=== PATIENT | female | born 1950 | race Caucasian/White ===

== ENCOUNTER 2016-08-30 11:05 | Emergency (ER) | payer BC ==
[~2016-08-30] VITALS: Ht 160 cm; Wt 78.5 kg
[~2016-08-30 11:05] MED LIST: ALL180 PO; CARB200T PO; CHOL100010 PO; DTR5 PO; ESTR1.252 PO; NABU500T3 PO; OMEP40CA PO; PHEN1TAB85 PO; POTA20TA16 PO
[2016-08-30 11:09] VITALS: TEMP 36.5; Ht 160 cm; Wt 78.5 kg
[2016-08-30] MEDS ORDERED: AMOX500C3 PO (11:49)
[2016-08-30 12:01] VITALS: BP 164/96; PULSE 73; O2SAT 95
--- NOTE | 2016-08-30 16:50 | EMERGENCY ROOM VISIT NOTE ---
ED Visit Note First contact with patient: 11:35 CHIEF COMPLAINT: Sinus pressure and nasal discharge HPI: This 65-year-old white female patient complains of gradual onset of sinus pressure and nasal discharge that has lasted a month. She notes bilateral ear pain for the last 10-14 days as well. She is unsure if she has a fever. Occasional chills. No sweats. She has not seen her PCP for these symptoms. No nausea or vomiting. No neck pain. Denies any difficulty breathing or cough. She did have some chest tightness yesterday but this has resolved. Denies any rash. REVIEW OF SYSTEMS: Throat: No sore throat, dysphagia, or hoarseness. Neck: No stiffness, or swelling. Cardiac: No chest pain, diaphoresis, dyspnea on exertion, orthopnea, pedal edema, or palpitations. Respiratory: No wheezing, hemoptysis, shortness of breath, or stridor. PMH: Significant for seasonal allergies, osteoarthritis, urinary incontinence, GERD, and seizure history. Previous surgeries: ERCP, hysterectomy, cholecystectomy Current medications: Archana, Relafen, vitamins, Premarin, did trip and, Prilosec, phenobarbital, Tegretol, potassium Allergies: Codeine, phenytoin. She states penicillin stopped working for her, but she denies any allergy. No rashes or shortness of breath. SOCIAL HISTORY: Patient lives at home. No tobacco use, no EtOH use. PHYSICAL EXAM: Vital Signs: Afebrile. Reviewed Nurse's notes. MENTAL STATUS: Alert, oriented and cooperative. Sitting on a bed. Skin: Warm and dry with good turgor. No rashes or lesions. No ecchymosis or erythema. The patient is not diaphoretic. No abrasions. HEENT: Normocephalic atraumatic. Eyes PERRLA , EOMI. No conjunctiva or scleral injection. Ears TMs intact bilaterally with good light reflexes. No erythema or bulging. No hemotympanum. Canals are narrow. Nares patent bilaterally with left-sided turbinate enlargement. Thick white drainage present in the left nares. No epistaxis. She has discomfort with palpation over the maxillary sinuses bilaterally. No pain with palpation over the frontal sinuses. Oropharynx with erythema but no exudate. Uvula midline, oral mucosa moist. No lesions present. Lymphatics are palpated with left-sided anterior and posterior chain enlargement and tenderness. No enlargement on the right. LUNGS: Clear to auscultation and breath sounds equal , no wheezes, rales, or rhonchi. The pharynx is clear and not inflamed. HEART : normal regular sounds, no murmurs or rub. DIAGNOSIS: Acute maxillary sinusitis DISCHARGE INSTRUCTIONS: Patient was educated regarding today's findings. Conservative care measures were discussed. She was prescribed amoxicillin 500 mg 3 times a day 10 days. Her allergy versus sensitivity was confirmed with her. Start ibuprofen 600 mg every 6 hours with food for body aches or discomfort. Continue her Mucinex twice a day. Maintain hydration. Follow-up with her PCP next week if symptoms are not improving. She was reassured that I do not suspect otitis media, strep pharyngitis, or tonsillitis at this point. Current/Historical Medications Scheduled Amoxicillin (Amoxil), 500 MG PO TID Carbamazepine (Tegretol), 200 MG PO BID Cholecalciferol (Vitamin D), 1,000 INTER.UNIT PO DAILY Estrogens, Conjugated (Premarin), 1.25 MG PO DAILY Fexofenadine Hcl (Archana *), 180 MG PO DAILY Nabumetone (Relafen), 500 MG PO BID Omeprazole (Prilosec), 40 MG PO DAILY Oxybutynin Chloride (Ditropan *), 5 MG PO DAILY Phenobarbital (Phenobarbital), 30 MG PO BID Potassium Ext Rel (Klor-Con), 20 MEQ PO DAILY Allergies Coded Allergies: Codeine (Unverified Allergy, Mild, 2/5/10) Penicillins (Unverified Allergy, Mild, 2/5/10) Phenytoin (Unverified Allergy, Mild, 2/5/10) Vital Signs Date Time Temp Pulse Resp B/P Pulse Ox O2 Delivery O2 Flow Rate FiO2 08/30/16 12:01 73 18 164/96 95 08/30/16 11:30 94 Room Air 08/30/16 11:09 36.5 73 20 163/87 94 Room Air Departure Information Impression Primary Impression: Sinusitis, acute Dispostion Home / Self-Care Condition GOOD Prescriptions Amoxicillin (AMOXIL) 500 Mg Cap 500 MG PO TID, #30 CAP Prov: Chet Lou,P.A. 08/30/16 Forms WORK / SCHOOL INSTRUCTIONS, HOME CARE DOCUMENTATION FORM, COOL MIST HUMIDIFIER, MOTRIN USE, IMPORTANT VISIT INFORMATION Patient Instructions My [facility] [employer] Additional Instructions Continue Mucinex daily Ibuprofen every 6 hours as needed for discomfort/body aches Start amoxicillin 1 pill 3 times a day 10 days Maintain hydration Follow-up with your PCP next week if symptoms are not improving Cool mist humidifier may improve the nasal drainage
== END 2016-08-30 12:02 | disposition home or self-care (01) ==
LOC: C.EDB 11:07
DX: J01.00 Acute maxillary sinusitis, unspecified (principal); K21.9 Gastro-esophageal reflux disease without esophagitis; Z79.899 Other long term (current) drug therapy